=== PATIENT | female | born 1955 | race Caucasian/White ===

== ENCOUNTER 2016-10-25 14:05 | Emergency (ER) | payer MEDICARE ==
[2016-10-25] MEDS ORDERED: Aspirin Low Dose CHEW TAB* 81 MG PO ONE (14:24)
[2016-10-25 14:31] VITALS: BP 139/84
--- NOTE | 2016-10-25 14:31 | UC ---
Cardiac HPI - HPI Summary HPI Summary: patient comes to for palpitation and SOB, she has HX of daily dialysis, COPD and HTN. She has had these symtpoms for the past 24 hours. - History of Current Complaint Chief Complaint: UCRespiratory Stated Complaint: HEART PALPITATIONS,SOB-COPD Time Seen by Provider: 10/25/16 14:19 Hx Obtained From: Patient Onset/Duration: Sudden Onset, Lasting Hours Timing: Constant Initial Severity: Moderate Current Severity: Moderate Character: Irregular, Skipped Beats, Pressure/Squeezing Aggravating: Nothing Alleviating: Nothing Associated Signs & Symptoms: Positive: Chest Pain, Weakness, SOB - Risk Factors Pulmonary Embolism Risk Factors: Negative Cardiac Risk Factors: Hypertension, CAD Atrial Fibrillation: Negative TAD Risk Factors: Negative AMI/ACS Risk Factors: Hypertension - Allergy/Home Medications Allergies/Adverse Reactions: Allergies Allergy/AdvReac Type Severity Reaction Status Date / Time Cephalexin [From Keflex] Allergy Intermediate Diarrhea Verified 04/23/12 14:48 Home Medications: Home Medications Albuterol 2.5MG/3ML (0.083%)* [Ventolin 2.5 MG/3 ML NEB.JOHN*] 2.5 mg INH BID [History Confirmed 10/25/16] Albuterol HFA INHALER* [Ventolin HFA Inhaler*] 1 - 2 puff INH Q4H PRN 10/25/16 [ History Confirmed 10/25/16] Calcium Acetate CAP* [Phoslo CAP*] 667 mg PO TID WITH MEALS 10/25/16 [History Confirmed 10/25/16] Cholecalciferol TAB* [Vitamin D TAB*] 2,000 units PO DAILY 10/25/16 [History Confirmed 10/25/16] Cinacalcet TAB* [Sensipar TAB*] 90 mg PO MOWEFR 10/25/16 [History Confirmed ] Labetalol TAB* [Trandate TAB*] 400 mg PO BID 10/25/16 [History Confirmed ] Pregabalin CAP(*) [Lyrica CAP(*)] 50 mg PO DAILY 10/25/16 [History Confirmed ] Probiotic Product [Acidophilus] 1 cap PO DAILY 10/25/16 [History Confirmed 10/25] Sevelamer TAB* [Renvela TAB*] 800 mg PO TID 10/25/16 [History Confirmed 10/25/16 ] amLODIPine TAB* [Norvasc 5 mg TAB*] 2.5 mg PO DAILY 10/25/16 [History Confirmed 10/25/16] PMH/Surg Hx/FS Hx/Imm Hx Previously Healthy: Yes Cardiovascular History Of: Reports: Hypertension Respiratory History Of: Reports: COPD GI/ History Of: Reports: Renal Disease - on peritoneal dialysis, and does not know her level of creatinine. - Surgical History Surgical History: Yes Surgery Procedure, Year, and Place: - 96. L breast lumpectomy- benign polyp - Family History Known Family History: Positive: Hypertension - Social History Alcohol Use: None Substance Use Type: None Smoking Status (MU): Never Smoked Tobacco Review of Systems Constitutional: Negative Skin: Negative Eyes: Negative ENT: Negative Respiratory: Shortness Of Breath Cardiovascular: Palpitations Gastrointestinal: Negative Genitourinary: Negative Motor: Negative Neurovascular: Negative Musculoskeletal: Negative Neurological: Negative Psychological: Negative All Other Systems Reviewed And Are Negative: Yes Physical Exam Triage Information Reviewed: Yes Appearance: Well-Nourished, Ill-Appearing, Pain Distress Vital Signs: Initial Vital Signs Temp 97.8 F 10/25/16 14:15 Pulse 68 10/25/16 14:15 Resp 18 10/25/16 14:15 BP 141/78 10/25/16 14:15 Pulse Ox 98 10/25/16 14:15 Vital Signs Reviewed: Yes Eye Exam: Normal Eyes: Positive: Conjunctiva Clear ENT: Positive: Hearing grossly normal, Pharynx normal, TMs normal Dental Exam: Normal Neck exam: Normal Neck: Positive: Supple, Nontender, No Lymphadenopathy Respiratory: Positive: Chest non-tender, No respiratory distress, Respiratory distress - mild, Stridor Cardiovascular Exam: Normal Cardiovascular: Positive: RRR, No Murmur, Pulses Normal Abdominal Exam: Normal Abdomen Description: Positive: Other: - diffuse tenderness, distended, no organomegaly, + BS Bowel Sounds: Positive: Present Musculoskeletal Exam: Normal Musculoskeletal: Positive: Strength Intact, ROM Intact, No Edema Neurological Exam: Normal Neurological: Positive: Alert, Muscle Tone Normal Psychological Exam: Normal Skin: Positive: Other - ashy color - Assessment/Plan Course Of Treatment: hx obtained, exam performed, meds reviewed, EKG obtained and reviewed by Dr Edward, patient refused ASA, was sent via private care to [facility] ER. - Differential Diagnoses - Chest Pain Differential Diagnosis/HQI/PQRI: Acute NE, CHF, Lower Respiratory Infection - Differential Diagnoses - Hypertension Differential Diagnosis/HQI PQRI: Myocardial Infarction, Renal Disease - Differential Diagnoses - Palpitations Differential Diagnosis/HQI/PQRI: Hypokalemia - Clinical Impression Provider Diagnoses: palpitations. COPD - Physician Notifications Discussed Patient Care With: Nelli Macias [employer] Discharge - Discharge Plan Condition: Stable Disposition: TRANS [facility] OF CARE FAC
== END 2016-10-25 14:30 | disposition short-term general hospital (02) ==
LOC: UCCORT 14:05
DX: R00.2 Palpitations (principal); J44.9 Chronic obstructive pulmonary disease, unspecified
CPT/HCPCS: 93005; 99213; G0463

== ENCOUNTER 2017-02-19 09:07 | Emergency (ER) | payer MEDICARE ==
[2017-02-19 10:08] VITALS: BP 147/78
[2017-02-19] MEDS ORDERED: Albuterol/Ipratropium NEB.SOL* Albuterol 2.5 MG/Ipratropium 0.5 MG 3 ML INH ONE (10:32)
--- NOTE | 2017-02-19 10:37 | UC ---
Respiratory Complaint HPI - HPI Summary HPI Summary: 61 female presents to with complaints of cough, chest congestion, SOB, fever , headache and myalgias that began ~2 days ago and has worsened today. Patient has not taken anything other than robitussin. States she believes this began from sitting outside and having her allergies, asthma and COPD exacerbated. Patient had pneumonia and bronchitis last year where she was treated with senior care antibiotics and had complications with c diff. PCP placed her on flovent last month however she has not had any refills for the past month. States that does help her. Did not get flu shot. Has history of kidney failure, slipped disc , and GERD. No other complaints. States fever was 100.3F via oral yesterday. Is currently gravity wheelchair bound due to slipped disc in back and is not up and moving around often. - History of Current Complaint Chief Complaint: UCRespiratory Stated Complaint: 100.3 FEVER COUGH WHEEZING SHORTNESS OF BREATH Time Seen by Provider: 02/19/17 10:18 Hx Obtained From: Patient Onset/Duration: Sudden Onset, Lasting Days, Still Present, Worse Since Severity Initially: Mild Severity Currently: Moderate Pain Intensity: 2 Pain Scale Used: 0-10 Numeric Character: Cough: Nonproductive - no hemoptysis Aggravating Factors: Allergens, Exertion, Deep Breaths Alleviating Factors: Nothing Associated Signs And Symptoms: Positive: Dyspnea, Fever, Chills, Wheezing, URI. Negative: Pleuritic Chest Pain, Hemoptysis, Calf Pain, Calf Swelling, Nasal Congestion Related History: Seasonal Allergies - Allergies/Home Medications Allergies/Adverse Reactions: Allergies Allergy/AdvReac Type Severity Reaction Status Date / Time Cephalexin [From Keflex] Allergy Intermediate Diarrhea Verified 10/25/16 14:25 Guaifenesin Allergy Itching Verified 10/25/16 14:25 NSAIDs Allergy See Comment Verified 10/25/16 14:25 Home Medications: Home Medications Fluticasone HFA 220 mcg(NF) [Flovent HFA 220 Mcg(NF)] 1 puff INH BID 02/19/17 [ History Confirmed 02/19/17] PMH/Surg Hx/FS Hx/Imm Hx - Additional Past Medical History Additional PMH: Denies HTN, DM Respiratory History: COPD, Asthma, Pneumonia GI/ History: Gastroesophageal Reflux, Other Other GI/ History: kidney failure - Surgical History Surgical History: Yes Surgery Procedure, Year, and Place: - 96. L breast lumpectomy- benign polyp - Family History Known Family History: Positive: Hypertension - Social History Alcohol Use: None Substance Use Type: None Smoking Status (MU): Never Smoked Tobacco - Immunization History Most Recent Influenza Vaccination: "I don't do flu shots." Review of Systems Constitutional: Fever, Chills Eyes: Negative ENT: Negative Respiratory: Shortness Of Breath, Cough Cardiovascular: Negative Gastrointestinal: Negative Musculoskeletal: Myalgia Neurological: Headache All Other Systems Reviewed And Are Negative: Yes Physical Exam Triage Information Reviewed: Yes Appearance: Well-Appearing, No Pain Distress, Well-Nourished Vital Signs: Initial Vital Signs Temp 99 F 02/19/17 09:59 Pulse 88 02/19/17 09:59 Resp 24 02/19/17 09:59 BP 147/78 02/19/17 09:59 Pulse Ox 97 02/19/17 09:59 Eyes: Positive: Conjunctiva Clear ENT: Positive: Normal ENT inspection, Hearing grossly normal, TMs normal Neck: Positive: Supple, Nontender, No Lymphadenopathy Respiratory: Positive: Chest non-tender, No respiratory distress, No accessory muscle use, Rhonchi - b/l, Wheezing - b/l inspiratory and expiratory, Other: - bronchial breath sounds noted. Negative: Lungs clear - some rhonci Cardiovascular: Positive: RRR, No Murmur, Pulses Normal, Brisk Capillary Refill , Other: - no JVD, no bilateral lower leg edema Abdomen Description: Positive: Nontender, Soft Bowel Sounds: Positive: Present Musculoskeletal: Positive: Strength Intact, ROM Intact Neurological: Positive: Alert Skin Exam: Normal UC Diagnostic Evaluation - Laboratory O2 Sat by Pulse Oximetry: 97 - Radiology Xray Interpretation: Positive (See Comments) - Stigmata of chronic obstructive pulmonary disease and emphysema. Potential Radiology Interpretation Completed By: Radiologist Re-Evaluation - Re-Evaluation First Eval Re-Evaluation Time: 11:24 Change: Improved - had improvement after nebulizer treatment, feeling better. updated in chest x-ray Respiratory Course/Dx - Course Course Of Treatment: chest x-ray obtained. Nebulizer given had significant improvement although still hearing wheezing b/l and bronchial breath sounds. Talked to Dr Nguyen about treatment options with antibiotics due to history of complications in the past from c diff. not currently febrile non hypoxic. will send home with nebulizer treatments, steroid, and antibiotic. Attempted to contact Dr Jones patient's calculus teacher at 11:20am to check and see if he recommended flagyl treatment as patient suggested he did due to previous history of c diff. Follow up with PCP and Robert. IF symptoms worsen as discussed and is aware of will go to ER of seek medical attention promptly, as she did not feel she wanted to go at this time. No concern for pneumonia or CHF at this time. Hx of COPD asthma and PE findings will treat with steroid, antibiotic and neb. Do not feel transfer to hospital at this time would be beneficial. - Differential Dx/Diagnosis Differential Diagnosis/HQI/PQRI: Asthma, Bronchitis, CHF, Exacerbation Of COPD, Influenza, Lower Resp Infection Provider Diagnoses: acute bronchitis with COPD - Physician Notification/Consults Discussed Patient Care With: Dr Nguyen Discharge - Discharge Plan Condition: Stable Disposition: HOME Patient Education Materials: Acute Bronchitis (ED), COPD (Chronic Obstructive Pulmonary Disease) (ED), Wheezing (ED), How to Use a Nebulizer (ED) Referrals: Celeste Perrin MD [Primary Care Provider] - Additional Instructions: Use prescribed medication as directed. Nebulizer, steroid and antibiotics. Recommend taking probiotic pill in between doses and eating kinyarwanda yogurt to prevent c diff. Follow up with PCP within 3 days to ensure improvement. Rest. If symptoms worsen or do not improve as discussed please seek medical attention promptly.
--- NOTE | 2017-02-19 11:01 | RAD ---
INDICATION: Shortness of breath, wheezing. Assess for pneumonia. COMPARISON: June 15, [address] TECHNIQUE: Dual energy PA and routine lateral views of the chest were obtained. REPORT: Elevated lung volumes and both diffuse mild prominence of the interstitial markings and patchy rarefaction of the mid to upper lung zone interstitial markings. Subtle peripheral thickened interlobular septa noted. No focal pulmonary lesion, compelling alveolar consolidation, pleural effusion, pneumothorax. Mild cardiomegaly. Unremarkable central pulmonary vasculature. Mildly prominent RIGHT paratracheal mediastinal contour most suspicious for jugular venous distention. Multiple healed RIGHT rib fractures. No acute fracture or suspicious focal osseous lesion. IMPRESSION: Stigmata of chronic obstructive pulmonary disease and emphysema. Potential mild interstitial edema. Correlate for jugular venous distention.
== END 2017-02-19 11:52 | disposition home or self-care (01) ==
LOC: UCCORT 09:07
DX: J44.0 Chronic obstructive pulmonary disease with (acute) lower respiratory infection (principal); J20.9 Acute bronchitis, unspecified; R50.9 Fever, unspecified; K21.9 Gastro-esophageal reflux disease without esophagitis; N19 Unspecified kidney failure; Z88.6 Allergy status to analgesic agent; Z88.1 Allergy status to other antibiotic agents
CPT/HCPCS: 71020; 99212; A9270-GY; G0463

== ENCOUNTER 2017-10-02 16:59 | Emergency (ER) | payer MEDICARE ==
[2017-10-02 17:16] VITALS: BP 150/79
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
[2017-10-02] MEDS ORDERED: Albuterol 2.5 MG/3 ML NEB.SOL* (0.083%) INH ONE (17:48)
--- NOTE | 2017-10-02 18:23 | RAD ---
HISTORY: COPD exacerbation, tachypnea COMPARISONS: February 19, 2017 VIEWS: 4: Frontal dual-energy and lateral views of the chest. FINDINGS: CARDIOMEDIASTINAL SILHOUETTE: The cardiomediastinal silhouette is normal. MARY: The mary are normal. PLEURA: There is blunting of left costophrenic angle. LUNG PARENCHYMA: There has been interval development of confluent alveolar opacification with air bronchograms of the left lower lobe. ABDOMEN: The upper abdomen is clear. There is no subphrenic gas. BONES AND SOFT TISSUES: No bone or soft tissue abnormalities are noted. OTHER: None. IMPRESSION: LEFT LOWER LOBE CONSOLIDATION WITH SMALL LEFT PLEURAL EFFUSION. RECOMMEND FOLLOW-UP UNTIL RESOLUTION TO EXCLUDE UNDERLYING PULMONARY PARENCHYMAL PATHOLOGY.
== END 2017-10-02 18:54 | disposition short-term general hospital (02) ==
LOC: UCCORT 16:59
DX: J18.9 Pneumonia, unspecified organism (principal); J90 Pleural effusion, not elsewhere classified; N18.6 End stage renal disease; Z99.2 Dependence on renal dialysis; J44.9 Chronic obstructive pulmonary disease, unspecified; Z88.6 Allergy status to analgesic agent; Z88.8 Allergy status to other drugs, medicaments and biological substances
CPT/HCPCS: 71046; 99212; G0463

== ENCOUNTER 2018-06-02 16:26 | Emergency (ER) | payer MEDICARE ==
[2018-06-02 17:01] VITALS: BP 146/70
--- NOTE | 2018-06-02 17:44 | UC ---
Abdominal Pain Female HPI - HPI Summary HPI Summary: The patient is a 62-year-old female with end-stage renal disease who presents here with about a 24-hour history of fever chills weakness diarrhea and left lower quadrant abdominal pain. She states her temperature while at dialysis was 100.7. She has a history of C. difficile. - History of Current Complaint Chief Complaint: UCGeneralIllness Stated Complaint: FEVER Time Seen by Provider: 06/02/18 17:17 Hx Obtained From: Patient Onset/Duration: Gradual Onset, Lasting Hours Timing: Constant Severity Initially: Mild Severity Currently: Mild Pain Intensity: 3 Pain Scale Used: 0-10 Numeric Location: Discrete At: LLQ Radiates: No Aggravating Factor(s): Nothing Alleviating Factor(s): Nothing Associated Signs and Symptoms: Positive: Fever, Nausea, Diarrhea Allergies/Adverse Reactions: Allergies Allergy/AdvReac Type Severity Reaction Status Date / Time cephalexin [From Keflex] Allergy Diarrhea Verified 06/02/18 17:03 guaifenesin Allergy Itching Verified 06/02/18 17:03 NSAIDS (Non-Steroidal Allergy See Comment Verified 06/02/18 17:03 Anti-Inflamma Home Medications: Home Medications Etelcalcetide Hydrochloride [Parsabiv] 5 mg IV 06/02/18 [History] PMH/Surg Hx/FS Hx/Imm Hx Previously Healthy: No Cardiovascular History: Hypertension Respiratory History: COPD GI/ History: Renal Disease, Other Other GI/ History: c. diff - Surgical History Surgical History: Yes Surgery Procedure, Year, and Place: - 96. L breast lumpectomy- benign polyp - Family History Known Family History: Positive: Hypertension - Social History Alcohol Use: None Substance Use Type: None Smoking Status (MU): Never Smoked Tobacco - Immunization History Most Recent Influenza Vaccination: "I don't do flu shots." Review of Systems All Other Systems Reviewed And Are Negative: Yes Constitutional: Positive: Fever, Chills, Fatigue Skin: Positive: Negative Eyes: Positive: Negative ENT: Positive: Negative Respiratory: Positive: Negative Cardiovascular: Positive: Negative Gastrointestinal: Positive: Abdominal Pain, Diarrhea, Nausea Genitourinary: Positive: Negative Motor: Positive: Negative Neurovascular: Positive: Negative Musculoskeletal: Positive: Negative Neurological: Positive: Negative Psychological: Positive: Negative Physical Exam Triage Information Reviewed: Yes Appearance: Ill-Appearing Vital Signs: Initial Vital Signs Temp 99.5 F 06/02/18 16:55 Pulse 90 06/02/18 16:55 Resp 20 06/02/18 16:55 BP 146/70 06/02/18 16:55 Pulse Ox 95 06/02/18 16:55 Vital Signs Reviewed: Yes Eyes: Positive: Conjunctiva Clear ENT: Positive: Hearing grossly normal. Negative: Nasal congestion, Nasal drainage, Trismus, Muffled voice, Hoarse voice Neck: Positive: Supple, Nontender, No Lymphadenopathy Respiratory: Positive: No respiratory distress, No accessory muscle use, Rhonchi Cardiovascular: Positive: RRR Abdomen Description: Positive: Soft. Negative: Nontender Bowel Sounds: Positive: Hyperactive Musculoskeletal: Positive: No Edema Neurological: Positive: Alert Psychological Exam: Normal Skin: Negative: Rashes Abd Pain Female Course/Dx - Course Course Of Treatment: [facility] notified. To ER via POV - Differential Dx/Diagnosis Provider Diagnosis: Abdominal pain, left lower quadrant Discharge - Sign-Out/Discharge Documenting (check all that apply): Patient Departure All imaging exams completed and their final reports reviewed: No Studies - Discharge Plan Condition: Stable Disposition: HOME-RECOMMEND TO ED Referrals: Adrián Hubbard PA [Primary Care Provider] - Additional Instructions: Please go directly to [facility] They are expecting you - Billing Disposition and Condition Condition: STABLE Disposition: Home-Recommend to ED
== END 2018-06-02 17:51 | disposition home health service (06) ==
LOC: UCCORT 16:26
DX: R10.32 Left lower quadrant pain (principal); I12.0 Hypertensive chronic kidney disease with stage 5 chronic kidney disease or end stage renal disease; N18.6 End stage renal disease; Z99.2 Dependence on renal dialysis; Z88.1 Allergy status to other antibiotic agents; Z88.6 Allergy status to analgesic agent; Z88.8 Allergy status to other drugs, medicaments and biological substances
CPT/HCPCS: 99212; G0463

== ENCOUNTER 2019-07-02 08:42 | Emergency (ER) | payer MEDICARE ==
[2019-07-02 09:08] VITALS: BP 134/62
--- NOTE | 2019-07-02 09:23 | UC ---
Respiratory Complaint HPI - HPI Summary HPI Summary: Pt presents with c/o gradual onset of malaise, cough, sob, cough, fever, chills , body aches. X 6 days. Pt is a dialysis pt. - History of Current Complaint Chief Complaint: UCRespiratory Stated Complaint: COUGH/CHEST CONGESTION/SOB Time Seen by Provider: 07/02/19 08:55 Hx Obtained From: Patient ?: No Onset/Duration: Gradual Onset, Lasting Days, Still Present, Worse Since - onset Timing: Constant Severity Initially: Mild Severity Currently: Moderate Pain Intensity: 4 Character: Cough: Nonproductive Aggravating Factors: Exertion, Deep Breaths, Recumbent Position Alleviating Factors: Nothing Associated Signs And Symptoms: Positive: Fever, Chills, Wheezing, URI, Nasal Congestion. Negative: Pleuritic Chest Pain - denies, Calf Swelling - denies - Risk Factors Pulmonary Embolism Risk Factors: Negative Cardiac Risk Factors: Negative - has esrd Pseudomonas Risk Factors: Negative Tuberculosis Risk Factors: Negative - has esrd - Allergies/Home Medications Allergies/Adverse Reactions: Allergies Allergy/AdvReac Type Severity Reaction Status Date / Time cephalexin [From Keflex] Allergy Diarrhea Verified 07/02/19 09:10 [email or web address] Allergy Itching Verified 07/02/19 09:10 NSAIDS (Non-Steroidal Allergy See Comment Verified 07/02/19 09:10 Anti-Inflamma PMH/Surg Hx/FS Hx/Imm Hx Previously Healthy: No GI/ History: Renal Disease - Surgical History Surgical History: Yes Surgery Procedure, Year, and Place: - 96. L breast lumpectomy- benign polyp - Family History Known Family History: Positive: Hypertension - Social History Occupation: Disabled Lives: With Family Alcohol Use: None Substance Use Type: None Smoking Status (MU): Never Smoked Tobacco Have You Smoked in the Last Year: No - Immunization History Most Recent Influenza Vaccination: "I don't do flu shots." Review of Systems All Other Systems Reviewed And Are Negative: Yes Constitutional: Positive: Fever, Chills, Fatigue Skin: Positive: Negative Eyes: Positive: Negative ENT: Positive: Nasal Discharge Respiratory: Positive: Shortness Of Breath, Cough Cardiovascular: Positive: Negative Gastrointestinal: Positive: Negative Genitourinary: Positive: Negative Motor: Positive: Negative Neurovascular: Positive: Negative Musculoskeletal: Positive: Myalgia Neurological: Positive: Weakness - at baseline Psychological: Positive: Negative Is Patient Immunocompromised?: No Physical Exam Triage Information Reviewed: Yes Appearance: Ill-Appearing Vital Signs: Initial Vital Signs Temp 99 F 07/02/19 09:02 Pulse 73 07/02/19 09:02 Resp 20 07/02/19 09:02 BP 134/62 07/02/19 09:02 Pulse Ox 99 07/02/19 09:02 Vital Signs Reviewed: Yes Eye Exam: Normal ENT: Positive: Nasal congestion Dental Exam: Normal Neck exam: Normal Respiratory: Positive: Decreased breath sounds Cardiovascular Exam: Normal Musculoskeletal Exam: Normal Neurological Exam: Normal Psychological Exam: Normal Skin Exam: Normal Respiratory Course/Dx - Course Course Of Treatment: Pt began vomiting prior to discharge. Pt given zofran. I discussed possibility of flu and pt stated that she is most concerned with bronchitis and pneumonia. - Differential Dx/Diagnosis Differential Diagnosis/HQI/PQRI: Bronchitis, Exacerbation Of COPD, Influenza Provider Diagnosis: Bronchitis, Nausea & vomiting Discharge ED - Sign-Out/Discharge Documenting (check all that apply): Patient Departure All imaging exams completed and their final reports reviewed: No Studies - Discharge Plan Condition: Stable Disposition: HOME Prescriptions: Azithromycin TAB* [Zithromax TAB (Z-JENNYFER) 250 mg #6 tabs] 2 tab PO .TODAY, THEN 1 DAILY #1 [email or web address] Ondansetron HCl [Zofran] 8 mg PO Q8H PRN #21 tablet PRN Reason: Nausea predniSONE 10 mg TAB [Deltasone 10 MG TAB*] 30 mg PO DAILY #12 tab Patient Education Materials: Acute Bronchitis (ED) Referrals: Adrián Hubbard PA [Primary Care Provider] - If Needed Additional Instructions: Please follow up with your PCP as needed. If your symptoms worsen please go to the closest ER for further testing and treatment. - Billing Disposition and Condition Condition: STABLE Disposition: Home - Attestation Statements Provider Attestation: I was available for consult. This patient was seen by the BARRE[facility]. The patient was not presented to , seen by or examined by tx -Erika Houser MD
[2019-07-02] MEDS ORDERED: Ondansetron ODT TAB* 4 MG PO ONE (09:34)
== END 2019-07-02 09:45 | disposition home or self-care (01) ==
LOC: UCCORT 08:42
DX: J40 Bronchitis, not specified as acute or chronic (principal); R11.2 Nausea with vomiting, unspecified; Z88.1 Allergy status to other antibiotic agents; Z88.8 Allergy status to other drugs, medicaments and biological substances; Z88.6 Allergy status to analgesic agent
CPT/HCPCS: 99212; A9270-GY; G0463